=== PATIENT | female | born 1940 | race African-American/Black ===

== ENCOUNTER 2021-06-24 17:18 | Inpatient (IN) | payer MEDICARE, MEDICAID ==
[~2021-06-24] VITALS: Ht 162.6 cm; Wt 60.3 kg
[~2021-06-24 17:18] MED LIST: ALD50 PO; ASPI-1497 PO; CLOP-31 PO; COR12 PO; DICL100G16 TP; GLIM1TAB PO; LIP40 PO; RANO500T3 PO; TIOT18CA3 IH
[2021-06-24 18:18] LABS: BG BASE EXCESS 1.4 mmol/L (-2.0-2.0); BG CARBOXYHEMOGLOBIN 1.6 % (0.5-1.5); BG DEOXYHEMOGLOBIN 3.6 % (0.0-5.0); BG FRACTION INSPIRED OXYGEN 40; BG HCO3 ACT 26.1 mmol/L (22.0-26.0); BG METHEMOGLOBIN 0.2 % (0.0-1.5); BG OXYGEN SATURATION 96.3 % (92.0-98.5); BG OXYHEMOGLOBIN 94.6 % (94.0-97.0); BG PCO2 41.2 mmHg (35.0-45.0); BG PH 7.419 (7.350-7.450); BG SAMPLE SITE RIGHT BRACHIAL; BG VENT MODE NASAL CANNULA
[2021-06-24 18:29] LABS: HEMATOCRIT. 40.3 % (36.0-48.0); HEMOGLOBIN. 13.1 g/dL (12.0-16.0); MEAN CORPUSCULAR HEMOGLOBIN 29.7 pg (28.0-32.0); MEAN CORPUSCULAR VOLUME 90.9 fL (81.0-99.0); MEAN PLATELET VOLUME 7.4 fl (7.4-10.4); PLATELET 424 x1000/uL (130-400); RED BLOOD CELL COUNT 4.43 mill/uL (4.2-5.4); RED CELL DISTRIBUTION WIDTH 13.4 % (11.6-14.6)
[2021-06-24 18:45] LABS: CHLORIDE 105 mEq/L (98-107)
[2021-06-24 19:09] LABS: PLATELET ESTIMATE INCREASED
[2021-06-24 20:51] LABS: CLARITY URINE CLOUDY (CLEAR); COLOR URINE DARK YELLOW (YELLOW); KETONES URINE 3+ (NEGATIVE); LEUKOCYTE ESTERASE URINE TRACE (NEGATIVE); NITRITE URINE NEGATIVE (NEGATIVE); OCCULT BLOOD URINE NEGATIVE (NEGATIVE); PROTEIN URINE 2+ (NEGATIVE); SPECIFIC GRAVITY URINE 1.035 (1.005-1.030)
[2021-06-24] MEDS ORDERED: DEXAMETHASONE 4MG/ML 1ML VIAL IV ONE (21:30)
[2021-06-24] MEDS ORDERED: LORAZEPAM 1MG TABLET PO ONE (23:15)
[2021-06-25] MEDS ORDERED: ONDANSETRON HCL 4MG/2ML INJ IV PRN (02:30)
[2021-06-25] MEDS ORDERED: ACETAMINOPHEN 325MG TABLET PO PRN (02:30)
[2021-06-25] MEDS ORDERED: CEFTRIAXONE 1 G PREMIX 50 ML IV SCH (03:00)
[2021-06-25] MEDS ORDERED: AZITHROMYCIN 500MG/250ML 250 ML IV NR (03:30)
[2021-06-25 05:50] VITALS: BP 131/78
[2021-06-25 08:00] VITALS: BP 134/73
[2021-06-25] MEDS ORDERED: PNEUMOCOCCAL 23-VAL P-SAC VAC 0.5 ML IM ONE (08:00)
[2021-06-25] MEDS: ENOXAPARIN 40MG/0.4ML SYR SUBCUT SCH (08:43)
[2021-06-25] MEDS: AMLODIPINE 10MG TABLET PO SCH (08:43)
[2021-06-25] MEDS: CLOPIDOGREL 75MG TABLET PO SCH (10:23)
[2021-06-25] MEDS: SPIRONOLACTONE 25MG TABLET PO SCH (10:24)
[2021-06-25] MEDS: CARVEDILOL 12.5MG TABLET PO SCH ×2 (10:25→17:00)
[2021-06-25 12:00] VITALS: BP 105/58
[2021-06-25 16:00] VITALS: BP 109/86
[2021-06-25] MEDS: DEXAMETHASONE 10 MG/ML VIAL IV SCH (17:01)
[2021-06-25 20:00] VITALS: BP 114/72
[2021-06-25] MEDS: ZOLPIDEM TARTRATE 5MG TABLET PO PRN (20:45)
[2021-06-25] MEDS: ATORVASTATIN CALCIUM 40MG TABLET PO SCH (20:45)
[2021-06-26] VITALS: BP 108/59
[2021-06-26 04:00] VITALS: BP 96/58
[2021-06-26 06:05] LABS: CHLORIDE 104 mEq/L (98-107)
[2021-06-26 06:16] LABS: HEMATOCRIT. 37.7 % (36.0-48.0); HEMOGLOBIN. 12.3 g/dL (12.0-16.0); MEAN CORPUSCULAR HEMOGLOBIN 29.5 pg (28.0-32.0); MEAN CORPUSCULAR VOLUME 90.8 fL (81.0-99.0); MEAN PLATELET VOLUME 7.6 fl (7.4-10.4); PLATELET 530 x1000/uL (130-400); RED BLOOD CELL COUNT 4.16 mill/uL (4.2-5.4); RED CELL DISTRIBUTION WIDTH 13.5 % (11.6-14.6)
[2021-06-26 06:17] LABS: LDL CHOLESTEROL 119 mg/dL (5-100)
[2021-06-26 06:18] LABS: HDL CHOLESTEROL 33 mg/dL (40-59)
[2021-06-26 08:00] VITALS: BP 140/74
[2021-06-26] MEDS ORDERED: AZITHROMYCIN 500 MG in DEXT 5% WATER 250 ML IV SCH (08:00)
[2021-06-26] MEDS: SPIRONOLACTONE 25MG TABLET PO SCH (08:20)
[2021-06-26] MEDS: AMLODIPINE 10MG TABLET PO SCH (08:20)
[2021-06-26] MEDS: ENOXAPARIN 40MG/0.4ML SYR SUBCUT SCH (08:20)
[2021-06-26] MEDS: CLOPIDOGREL 75MG TABLET PO SCH (08:20)
[2021-06-26] MEDS: CARVEDILOL 12.5MG TABLET PO SCH ×2 (08:20→16:36)
[2021-06-26] MEDS: DEXAMETHASONE 10 MG/ML VIAL IV SCH (08:21)
[2021-06-26] MEDS ORDERED: DEXTROSE 50% WATER 50ML SYRINGE IV PRN (09:30)
[2021-06-26] MEDS: CEFTRIAXONE 1,000 MG in DEXTROSE 5% WATER 50 ML IV SCH (09:44)
[2021-06-26] MEDS: AZITHROMYCIN 500 MG in DEXT 5% WATER 250 ML IV SCH (10:30)
[2021-06-26] MEDS ORDERED: INSULIN GLARGINE UD 100 UNITS/ML SYR SUBCUT NR (11:00)
[2021-06-26] MEDS ORDERED: ALBUTEROL 6.7GM HFA INHALER ORI PRN (11:00)
[2021-06-26 11:56] LABS: NUCLEATED RED BLOOD CELLS 1 /100 WBC; PLATELET ESTIMATE INCREASED
[2021-06-26 12:00] VITALS: BP 126/68
[2021-06-26] MEDS: BLOOD SUGAR DIAGNOSTIC STRIP TEST SCH ×3 (12:40→20:26)
[2021-06-26] MEDS: INSULIN LISPRO 100 UNITS/ML SUBCUT SCH ×3 (12:42→20:26)
[2021-06-26] MEDS: GUAIFENESIN-DM 200MG-20MG/10ML UDC PO PRN (12:47)
[2021-06-26 16:00] VITALS: BP 120/72
[2021-06-26] MEDS: ASPIRIN 81MG EC TABLET PO SCH (16:35)
[2021-06-26] MEDS: MONTELUKAST SODIUM 10MG TABLET PO SCH (16:35)
[2021-06-26] MEDS: ENOXAPARIN 80MG/0.8ML SYR SUBCUT SCH (16:35)
[2021-06-26 20:00] VITALS: BP 117/64
[2021-06-26] MEDS: ATORVASTATIN CALCIUM 40MG TABLET PO SCH (20:26)
[2021-06-26] MEDS: ZOLPIDEM TARTRATE 5MG TABLET PO PRN (20:26)
[2021-06-27] VITALS (7 sets, daily range): BP systolic 105–132; BP diastolic 60–81
[2021-06-27] MEDS: ENOXAPARIN 80MG/0.8ML SYR SUBCUT SCH ×2 (05:56→17:07)
[2021-06-27] MEDS: BLOOD SUGAR DIAGNOSTIC STRIP TEST SCH ×4 (07:06→21:58)
[2021-06-27] MEDS: INSULIN LISPRO 100 UNITS/ML SUBCUT SCH ×4 (08:13→21:57)
[2021-06-27] MEDS: ASPIRIN 81MG EC TABLET PO SCH (08:14)
[2021-06-27] MEDS: GUAIFENESIN-DM 200MG-20MG/10ML UDC PO PRN ×2 (08:14→11:43)
[2021-06-27] MEDS: AMLODIPINE 10MG TABLET PO SCH (08:14)
[2021-06-27] MEDS: CLOPIDOGREL 75MG TABLET PO SCH (08:14)
[2021-06-27] MEDS: CARVEDILOL 12.5MG TABLET PO SCH ×2 (08:14→17:07)
[2021-06-27] MEDS: DEXAMETHASONE 10 MG/ML VIAL IV SCH (08:14)
[2021-06-27] MEDS: CEFTRIAXONE 1,000 MG in DEXTROSE 5% WATER 50 ML IV SCH (08:15)
[2021-06-27 09:10] LABS: BASOPHILS % 0.4 % (0.0-2.0); HEMATOCRIT. 40.6 % (36.0-48.0); HEMOGLOBIN. 13.2 g/dL (12.0-16.0); LYMPHOCYTES % 9.3 % (20.0-50.0); MEAN CORPUSCULAR HEMOGLOBIN 29.1 pg (28.0-32.0); MEAN CORPUSCULAR VOLUME 89.3 fL (81.0-99.0); MEAN PLATELET VOLUME 7.7 fl (7.4-10.4); MONOCYTES % 13.2 % (2.0-8.0); NEUTROPHILS % 77.1 % (40.0-76.0); PLATELET 573 x1000/uL (130-400); RED BLOOD CELL COUNT 4.55 mill/uL (4.2-5.4); RED CELL DISTRIBUTION WIDTH 13.4 % (11.6-14.6)
[2021-06-27 09:19] LABS: INR 1.3; PROTHROMBIN TIME 13.5 sec (9.6-11.0)
[2021-06-27 09:21] LABS: CHLORIDE 103 mEq/L (98-107)
[2021-06-27] MEDS ORDERED: INSULIN GLARGINE UD 100 UNITS/ML SYR SUBCUT SCH (10:00)
[2021-06-27] MEDS: AZITHROMYCIN 500 MG in DEXT 5% WATER 250 ML IV SCH (10:16)
[2021-06-27] MEDS: GUAIFENESIN 600MG ER TABLET PO SCH ×2 (13:02→21:58)
[2021-06-27] MEDS ORDERED: INSULIN GLARGINE UD 100 UNITS/ML SYR SUBCUT NR (13:30)
[2021-06-27] MEDS: MONTELUKAST SODIUM 10MG TABLET PO SCH (17:06)
[2021-06-27] MEDS: ATORVASTATIN CALCIUM 20MG TABLET PO SCH (21:58)
[2021-06-27] MEDS: ZOLPIDEM TARTRATE 5MG TABLET PO PRN (21:58)
[2021-06-28 04:00] VITALS: BP 144/87
[2021-06-28] MEDS: BLOOD SUGAR DIAGNOSTIC STRIP TEST SCH ×4 (05:15→21:01)
[2021-06-28] MEDS: ENOXAPARIN 80MG/0.8ML SYR SUBCUT SCH ×2 (06:05→18:25)
[2021-06-28 08:00] VITALS: BP 136/76
[2021-06-28 08:54] LABS: BG BASE EXCESS 3.1 mmol/L (-2.0-2.0); BG CARBOXYHEMOGLOBIN 1.1 % (0.5-1.5); BG DEOXYHEMOGLOBIN 6.6 % (0.0-5.0); BG FRACTION INSPIRED OXYGEN 28; BG HCO3 ACT 26.9 mmol/L (22.0-26.0); BG METHEMOGLOBIN 0.3 % (0.0-1.5); BG OXYGEN SATURATION 93.3 % (92.0-98.5); BG PCO2 38.2 mmHg (35.0-45.0); BG PH 7.465 (7.350-7.450); BG SAMPLE SITE LEFT BRACHIAL; BG TOTAL HEMOGLOBIN 14.5 g/dL (12.0-18.0); BG VENT MODE NASAL CANNULA
[2021-06-28] MEDS: AMLODIPINE 10MG TABLET PO SCH (09:11)
[2021-06-28] MEDS: CARVEDILOL 12.5MG TABLET PO SCH ×2 (09:11→17:00)
[2021-06-28] MEDS: DEXAMETHASONE 10 MG/ML VIAL IV SCH (09:11)
[2021-06-28] MEDS: CEFTRIAXONE 1,000 MG in DEXTROSE 5% WATER 50 ML IV SCH (09:11)
[2021-06-28] MEDS: ASPIRIN 81MG EC TABLET PO SCH (09:11)
[2021-06-28] MEDS: GUAIFENESIN 600MG ER TABLET PO SCH ×2 (09:14→21:01)
[2021-06-28] MEDS: INSULIN LISPRO 100 UNITS/ML SUBCUT SCH ×4 (09:43→21:01)
[2021-06-28 12:00] VITALS: BP 100/65
[2021-06-28 12:05] LABS: BASOPHILS % 0.1 % (0.0-2.0); HEMATOCRIT. 42.6 % (36.0-48.0); HEMOGLOBIN. 13.9 g/dL (12.0-16.0); LYMPHOCYTES % 7.1 % (20.0-50.0); MEAN CORPUSCULAR HEMOGLOBIN 29.5 pg (28.0-32.0); MEAN CORPUSCULAR VOLUME 90.7 fL (81.0-99.0); MEAN PLATELET VOLUME 7.8 fl (7.4-10.4); MONOCYTES % 14.8 % (2.0-8.0); PLATELET 583 x1000/uL (130-400); RED CELL DISTRIBUTION WIDTH 13.5 % (11.6-14.6)
[2021-06-28 12:07] LABS: CHLORIDE 104 mEq/L (98-107)
[2021-06-28 12:52] LABS: BG BASE EXCESS 5.2 mmol/L (-2.0-2.0); BG DEOXYHEMOGLOBIN 10.3 % (0.0-5.0); BG FRACTION INSPIRED OXYGEN 21; BG HCO3 ACT 28.8 mmol/L (22.0-26.0); BG METHEMOGLOBIN 0.1 % (0.0-1.5); BG OXYGEN SATURATION 89.6 % (92.0-98.5); BG OXYHEMOGLOBIN 88.6 % (94.0-97.0); BG PCO2 38.9 mmHg (35.0-45.0); BG PH 7.488 (7.350-7.450); BG PO2 54.8 mmHg (75.0-100.0); BG SAMPLE SITE RIGHT RADIAL; BG TOTAL HEMOGLOBIN 14.7 g/dL (12.0-18.0); BG VENT MODE ROOM AIR
[2021-06-28] MEDS: BENZONATATE 100MG CAPSULE PO SCH ×3 (12:52→21:01)
[2021-06-28] MEDS: AZITHROMYCIN 500 MG TABLET PO SCH (12:53)
[2021-06-28] MEDS: INSULIN GLARGINE UD 100 UNITS/ML SYR SUBCUT SCH (12:55)
[2021-06-28 16:00] VITALS: BP 104/61
[2021-06-28] MEDS: MONTELUKAST SODIUM 10MG TABLET PO SCH (18:25)
[2021-06-28 20:00] VITALS: BP 131/65
[2021-06-28] MEDS: ATORVASTATIN CALCIUM 20MG TABLET PO SCH (21:00)
[2021-06-28] MEDS: ZOLPIDEM TARTRATE 5MG TABLET PO PRN (21:01)
[2021-06-29] VITALS: BP 120/73
[2021-06-29 04:00] VITALS: BP 116/67
[2021-06-29] MEDS: ENOXAPARIN 80MG/0.8ML SYR SUBCUT SCH (05:33)
[2021-06-29] MEDS: BENZONATATE 100MG CAPSULE PO SCH ×3 (05:33→21:49)
[2021-06-29] MEDS: BLOOD SUGAR DIAGNOSTIC STRIP TEST SCH ×4 (07:16→21:48)
[2021-06-29 07:47] VITALS: BP 126/65
[2021-06-29] MEDS: INSULIN LISPRO 100 UNITS/ML SUBCUT SCH ×4 (09:04→20:17)
[2021-06-29] MEDS: DEXAMETHASONE 10 MG/ML VIAL IV SCH (09:05)
[2021-06-29] MEDS: ASPIRIN 81MG EC TABLET PO SCH (09:05)
[2021-06-29] MEDS: CARVEDILOL 12.5MG TABLET PO SCH ×2 (09:06→17:39)
[2021-06-29] MEDS: AMLODIPINE 10MG TABLET PO SCH (09:06)
[2021-06-29] MEDS: GUAIFENESIN 600MG ER TABLET PO SCH ×2 (09:06→20:16)
[2021-06-29] MEDS: CEFTRIAXONE 1,000 MG in DEXTROSE 5% WATER 50 ML IV SCH (09:07)
[2021-06-29] MEDS: INSULIN GLARGINE UD 100 UNITS/ML SYR SUBCUT SCH (10:58)
[2021-06-29] MEDS: AZITHROMYCIN 500 MG TABLET PO SCH (10:59)
[2021-06-29 12:00] VITALS: BP 106/64
[2021-06-29 16:00] VITALS: BP 128/68
[2021-06-29] MEDS: MONTELUKAST SODIUM 10MG TABLET PO SCH (17:39)
[2021-06-29 20:00] VITALS: BP 125/71
[2021-06-29] MEDS: ZOLPIDEM TARTRATE 5MG TABLET PO PRN (20:16)
[2021-06-29] MEDS: ATORVASTATIN CALCIUM 20MG TABLET PO SCH (20:16)
[2021-06-29] MEDS: ENOXAPARIN 60MG/0.6ML SYR SUBCUT SCH (20:17)
[2021-06-30] VITALS: BP 118/62
[2021-06-30 04:00] VITALS: BP 119/58
[2021-06-30] MEDS: BENZONATATE 100MG CAPSULE PO SCH ×3 (05:35→22:00)
[2021-06-30] MEDS: BLOOD SUGAR DIAGNOSTIC STRIP TEST SCH ×4 (07:29→20:44)
[2021-06-30] MEDS: INSULIN LISPRO 100 UNITS/ML SUBCUT SCH ×4 (07:29→20:54)
[2021-06-30 08:00] VITALS: BP 114/67
[2021-06-30] MEDS: ENOXAPARIN 60MG/0.6ML SYR SUBCUT SCH ×2 (08:17→20:42)
[2021-06-30] MEDS: GUAIFENESIN 600MG ER TABLET PO SCH ×2 (08:17→20:42)
[2021-06-30] MEDS: ASPIRIN 81MG EC TABLET PO SCH (08:17)
[2021-06-30] MEDS: CEFTRIAXONE 1,000 MG in DEXTROSE 5% WATER 50 ML IV SCH (08:17)
[2021-06-30] MEDS: AMLODIPINE 10MG TABLET PO SCH (08:17)
[2021-06-30] MEDS: DEXAMETHASONE 10 MG/ML VIAL IV SCH (08:17)
[2021-06-30] MEDS: CARVEDILOL 12.5MG TABLET PO SCH ×2 (08:18→16:16)
[2021-06-30] MEDS: INSULIN GLARGINE UD 100 UNITS/ML SYR SUBCUT SCH (09:12)
[2021-06-30] MEDS ORDERED: GLIMEPIRIDE 2MG TABLET PO NR (10:45)
[2021-06-30 12:00] VITALS: BP 121/65
[2021-06-30 16:00] VITALS: BP 120/69
[2021-06-30] MEDS: MONTELUKAST SODIUM 10MG TABLET PO SCH (16:15)
[2021-06-30 20:00] VITALS: BP 116/68
[2021-06-30] MEDS: ZOLPIDEM TARTRATE 5MG TABLET PO PRN (20:42)
[2021-06-30] MEDS: ATORVASTATIN CALCIUM 20MG TABLET PO SCH (20:43)
[2021-07-01] VITALS: BP 122/68
[2021-07-01 04:00] VITALS: BP 124/75
[2021-07-01] MEDS: BENZONATATE 100MG CAPSULE PO SCH ×3 (05:28→21:35)
[2021-07-01 05:47] LABS: BASOPHILS % 0.3 % (0.0-2.0); HEMATOCRIT. 46.5 % (36.0-48.0); HEMOGLOBIN. 15.1 g/dL (12.0-16.0); LYMPHOCYTES % 7.9 % (20.0-50.0); MEAN CORPUSCULAR HEMOGLOBIN 29.1 pg (28.0-32.0); MEAN CORPUSCULAR VOLUME 89.6 fL (81.0-99.0); MEAN PLATELET VOLUME 8.1 fl (7.4-10.4); MONOCYTES % 14.6 % (2.0-8.0); NEUTROPHILS % 77.2 % (40.0-76.0); PLATELET 508 x1000/uL (130-400); RED BLOOD CELL COUNT 5.19 mill/uL (4.2-5.4); RED CELL DISTRIBUTION WIDTH 13.2 % (11.6-14.6)
[2021-07-01 07:23] LABS: CHLORIDE 104 mEq/L (98-107)
[2021-07-01] MEDS: BLOOD SUGAR DIAGNOSTIC STRIP TEST SCH ×4 (07:40→20:25)
[2021-07-01 08:00] VITALS: BP 108/64
[2021-07-01] MEDS: INSULIN LISPRO 100 UNITS/ML SUBCUT SCH ×4 (08:10→21:34)
[2021-07-01] MEDS: AMLODIPINE 10MG TABLET PO SCH (08:40)
[2021-07-01] MEDS: DEXAMETHASONE 10 MG/ML VIAL IV SCH (08:41)
[2021-07-01] MEDS: ASPIRIN 81MG EC TABLET PO SCH (08:41)
[2021-07-01] MEDS: GLIMEPIRIDE 2MG TABLET PO SCH (08:41)
[2021-07-01] MEDS: ENOXAPARIN 60MG/0.6ML SYR SUBCUT SCH ×2 (08:42→21:32)
[2021-07-01] MEDS: CARVEDILOL 12.5MG TABLET PO SCH ×2 (08:42→17:12)
[2021-07-01] MEDS: GUAIFENESIN 600MG ER TABLET PO SCH ×2 (08:42→21:20)
[2021-07-01 12:00] VITALS: BP 106/58
[2021-07-01] MEDS: INSULIN GLARGINE UD 100 UNITS/ML SYR SUBCUT SCH (12:37)
[2021-07-01 16:00] VITALS: BP 110/60
[2021-07-01] MEDS: MONTELUKAST SODIUM 10MG TABLET PO SCH (17:11)
[2021-07-01] MEDS ORDERED: INSULIN GLARGINE UD 100 UNITS/ML SYR SUBCUT NR (18:00)
[2021-07-01] MEDS ORDERED: INSULIN LISPRO 100 UNITS/ML SUBCUT NR (18:00)
[2021-07-01 20:00] VITALS: BP 120/63
[2021-07-01] MEDS: ATORVASTATIN CALCIUM 20MG TABLET PO SCH (21:20)
[2021-07-01] MEDS ORDERED: ZOLPIDEM TARTRATE 5MG TABLET PO SCH (22:15)
[2021-07-02] VITALS: BP 126/66
[2021-07-02 04:00] VITALS: BP 111/65
[2021-07-02] MEDS: BENZONATATE 100MG CAPSULE PO SCH ×2 (07:16→12:57)
[2021-07-02] MEDS: BLOOD SUGAR DIAGNOSTIC STRIP TEST SCH ×2 (07:40→12:01)
[2021-07-02 08:00] VITALS: BP 104/68
[2021-07-02] MEDS: GLIMEPIRIDE 2MG TABLET PO SCH (08:07)
[2021-07-02] MEDS: GUAIFENESIN 600MG ER TABLET PO SCH (08:07)
[2021-07-02] MEDS: AMLODIPINE 10MG TABLET PO SCH (08:08)
[2021-07-02] MEDS: ASPIRIN 81MG EC TABLET PO SCH (08:08)
[2021-07-02] MEDS: ENOXAPARIN 60MG/0.6ML SYR SUBCUT SCH (08:08)
[2021-07-02] MEDS: DEXAMETHASONE 10 MG/ML VIAL IV SCH (08:08)
[2021-07-02] MEDS: CARVEDILOL 12.5MG TABLET PO SCH (08:09)
[2021-07-02] MEDS: INSULIN LISPRO 100 UNITS/ML SUBCUT SCH ×2 (08:10→12:53)
[2021-07-02] MEDS ORDERED: INSULIN GLARGINE UD 100 UNITS/ML SYR SUBCUT SCH (11:00)
[2021-07-02 12:00] VITALS: BP 122/66
[2021-07-02 16:00] VITALS: BP 117/78
[2021-07-02 16:41] VITALS: BP 126/73
[2021-07-03] MEDS ORDERED: GLIMEPIRIDE 2MG TABLET PO SCH (07:40)
== END 2021-07-02 17:45 | DRG 871 ==
LOC: ER 17:18 → 7WST 22:10 → EDBEDREQSVC 22:14 → EDBEDREQTM 22:14 → EDBEDREQ 22:14 → ENRESERV 06-25 03:29
PROVIDERS: ADMIT Internal Medicine Geriatric Medicine; ATTEND Internal Medicine Geriatric Medicine
DX: A41.89 Other specified sepsis (principal); U07.1 COVID-19; J96.01 Acute respiratory failure with hypoxia; E43 Unspecified severe protein-calorie malnutrition; J12.82 Pneumonia due to coronavirus disease 2019; J44.0 Chronic obstructive pulmonary disease with (acute) lower respiratory infection; N39.0 Urinary tract infection, site not specified; I50.20 Unspecified systolic (congestive) heart failure; F17.200 Nicotine dependence, unspecified, uncomplicated; I25.10 Atherosclerotic heart disease of native coronary artery without angina pectoris; I25.5 Ischemic cardiomyopathy; E11.51 Type 2 diabetes mellitus with diabetic peripheral angiopathy without gangrene; E78.5 Hyperlipidemia, unspecified; I25.82 Chronic total occlusion of coronary artery; I48.0 Paroxysmal atrial fibrillation; I70.209 Unspecified atherosclerosis of native arteries of extremities, unspecified extremity; Z95.810 Presence of automatic (implantable) cardiac defibrillator; I25.2 Old myocardial infarction; Z79.82 Long term (current) use of aspirin; Z79.899 Other long term (current) drug therapy; Z68.22 Body mass index [BMI] 22.0-22.9, adult; Z79.01 Long term (current) use of anticoagulants; Z79.84 Long term (current) use of oral hypoglycemic drugs; D89.839 Cytokine release syndrome, grade unspecified; I11.0 Hypertensive heart disease with heart failure
CPT/HCPCS: 36415; 36600; 71045; 80048; 80053; 80061; 81003; 82375; 82728; 82805; 82962; 83036; 83615; 83880; 84484; 85025; 85379; 86140; 87426; 90732; 93005; 93970; 97162; 99291; J0456; J0696; J1100; J1650; J1815; J7060; U0003; U0005